=== PATIENT | female | born 1990 | race Caucasian/White ===

== ENCOUNTER 2018-09-03 21:27 | Emergency (ER) | payer MEDICAID ==
[~2018-09-03] VITALS: Ht 162.6 cm; Wt 78.2 kg
[~2018-09-03 21:27] MED LIST: CEPH-572 PO; IBUP-1985 PO; SULF1TAB49 PO
[2018-09-03 21:30] VITALS: BP 132/84
--- NOTE | 2018-09-03 21:48 | NUR ---
PT IS 28 YO FEMALE C/O ABSCESS TO SUPRAPUBIC AREA SINCE SATURDAY, HAS BEEN COMPLIANT WITH TAKING ANTIBIOTICS SINCE SATURDAY, PAIN HAS INCREASED, PT IS WAITING TO BE EVALUATED
== END 2018-09-03 23:39 | disposition home or self-care (01) ==
LOC: ER 21:27
DX: L02.211 Cutaneous abscess of abdominal wall (principal)
CPT/HCPCS: 99284

== ENCOUNTER 2019-10-08 16:28 | Emergency (ER) | payer MEDICAID ==
[~2019-10-08] VITALS: Ht 162.6 cm; Wt 75.0 kg
[~2019-10-08 16:28] MED LIST changes: +BUSP10TA3 PO; -CEPH-572 PO; +CEPH250C PO; -IBUP-1985 PO; +PALI3TAB5 PO; -SULF1TAB49 PO
[2019-10-08 17:12] VITALS: BP 139/92
[2019-10-09] MEDS ORDERED: PALI9TAB PO (20:03)
[2019-10-09] MEDS ORDERED: L-NO1TBD18 PO (20:03)
[2019-10-09] MEDS ORDERED: LORA-269 PO (20:07)
== END 2019-10-08 18:47 | disposition left against medical advice (07) ==
LOC: ER 16:28
DX: R45.1 Restlessness and agitation (principal); Z53.21 Procedure and treatment not carried out due to patient leaving prior to being seen by health care provider

== ENCOUNTER 2019-10-09 17:16 | Emergency (ER) | payer MEDICAID ==
[~2019-10-09] VITALS: Ht 160 cm; Wt 77.3 kg
[2019-10-09] MEDS ORDERED: LORazepam 1 MG tablet PO ONE ×2 (19:05→20:15)
[2019-10-09 19:36] LABS: URINE HCG NEGATIVE (NEG)
--- NOTE | 2019-10-09 19:40 | NUR ---
Patient is awake and well oriented. Her affect is flat. Patient has a sad looking face. The patient tells this selling underwriter that she is having thoughts that "the whole world knows everything about me." The patient denies S/I at this time, she denies hallucinations. The patient tells this selling underwriter that her thoughts have been telling her to lie about everything. The patient does complain of anxiety, she states she can't sleep. Patient admits to not taking her Invegra at home. Patient states a schizophrenia and bipolar history. The patient is reassured that she is in a safe place. Frequent rounding is being done for patient safety. Patients bed is in direct view from the nursing station.
[2019-10-09 19:50] LABS: URINE AMPHETAMINE SCREEN NEGATIVE (Neg); URINE BARBITUATE SCREEN NEGATIVE (Neg); URINE BENZODIAZEPINES SCREEN NEGATIVE (Neg); URINE CANNABINOID SCREEN NEGATIVE (Neg); URINE COCAINE SCREEN NEGATIVE (Neg); URINE METHADONE SCREEN NEGATIVE (Neg); URINE OPIATE SCREEN NEGATIVE (Neg); URINE PHENCYCLIDINE SCREEN NEGATIVE (Neg)
[2019-10-09] MEDS ORDERED: L-NO1TBD18 PO (20:03)
[2019-10-09] MEDS ORDERED: PALI9TAB PO (20:03)
[2019-10-09 20:05] LABS: BASOPHILS # (AUTO) 0.1 X10'3 (0-0.2); BASOPHILS % (AUTO) 0.5 % (0-1); EOSINOPHILS # (AUTO) 0.1 X10'3 (0-0.9); EOSINOPHILS % (AUTO) 0.6 % (0-6); HEMATOCRIT 40.5 % (35.0-45.0); HEMOGLOBIN 13.3 g/dl (12.0-16.0); LYMPHOCYTES # (AUTO) 3.8 X10'3 (1.1-4.8); LYMPHOCYTES % (AUTO) 31.2 % (21-51); MEAN PLATELET VOLUME 8.1 FL (7.4-10.4); MONOCYTES # (AUTO) 0.7 X10'3 (0-0.9); MONOCYTES % (AUTO) 5.9 % (2-12); NEUTROPHILS # (AUTO) 7.6 X10'3 (1.8-7.7); NEUTROPHILS % (AUTO) 61.8 % (42-75); PLATELET COUNT 248 X10'3 (140-440); RED BLOOD COUNT 4.76 X10'6 (4.20-5.60); RED CELL DISTRIBUTION WIDTH 13.7 % (11.5-14.5); WHITE BLOOD COUNT 12.3 X10'3 (4.5-11.0)
[2019-10-09] MEDS ORDERED: LORA-269 PO (20:07)
[2019-10-09 20:20] LABS: ALANINE AMINOTRANSFERASE 45 U/L (12-78); ALBUMIN 3.5 G/DL (3.4-5.0); ALBUMIN/GLOBULIN RATIO 1.1 (1.1-1.5); ALKALINE PHOSPHATASE 61 IU/L (46-116); ANION GAP 9 (8-16); ASPARTATE AMINO TRANSFERASE 18 U/L (10-37); BILIRUBIN,TOTAL 0.1 MG/DL (0.1-1.0); BLOOD UREA NITROGEN 4 MG/DL (7-18); BUN/CREATININE RATIO 4.8 (6.6-38.0); CALCIUM 8.7 MG/DL (8.5-10.1); CHLORIDE 111 MMOL/L (99-107); CREATININE 0.83 MG/DL (0.40-0.90); GLUCOSE 110 MG/DL (70-104); POTASSIUM 3.3 MMOL/L (3.5-5.1); SODIUM 144 MMOL/L (135-145); TOTAL CARBON DIOXIDE 23.8 MMOL/L (24-32); TOTAL PROTEIN 6.6 G/DL (6.4-8.2); eGFR 82 ML/MIN
[2019-10-09 20:23] LABS: ETHANOL < 0.010 GM/DL (0.0-0.010)
--- NOTE | 2019-10-09 20:50 | NUR ---
Patient exhibits paranoia, "I think taking medications will not help me recover!" Patient then takes her ativan for anxiety.
--- NOTE | 2019-10-09 21:00 | NUR ---
Patients mother called. The mother advised that the patient has been living with her fiance and his two children. Over the past few days mother states the patient has been hearing dark intrusive voices that have been telling her daughter to hurt others. The patient consented for this newspaper writer to speak with her mother. After a brief conversation with her mother on the phone the patient went back to bed to sleep.
--- NOTE | 2019-10-09 21:42 | NUR ---
Patient is sleeping quietly, low fowlers position in bed.
--- NOTE | 2019-10-09 21:55 | NUR ---
Patient has been interviewed by Freddie VALLE, from [facility]. Patient returns in bed following interview, she is covered with a sheet, knees flexed.
--- NOTE | 2019-10-09 23:19 | NUR ---
Patient is sleeping on her right side in bed.
--- NOTE | 2019-10-10 00:19 | NUR ---
Patient sleeping quietly on her right side.
--- NOTE | 2019-10-10 01:41 | NUR ---
Patient is sleeping on her right side. In view from nursing station.
--- NOTE | 2019-10-10 04:31 | NUR ---
Patient is sleeping on her left side. In view from nursing station.
[2019-10-10 05:20] VITALS: BP 111/72
[2019-10-10 07:05] LABS: CLARITY,URINE CLOUDY (Clear); COLOR,URINE YELLOW (Yellow); GLUCOSE, URINE NEGATIVE (Neg); KETONES,URINE TRACE mg/dl (Neg); LEUKOCYTE ESTERASE ,URINE NEGATIVE (Neg); NITRITES, URINE NEGATIVE (Neg); OCCULT BLOOD,URINE NEGATIVE (Neg); PROTEIN,URINE NEGATIVE (Neg)
[2019-10-10 07:17] LABS: UA COLLECTION TYPE VOIDED
[2019-10-10 07:20] LABS: MUCUS STRANDS FEW /LPF (Neg); SQUAMOUS EPITHELIAL CELL,UR MANY /LPF (FEW)
[2019-10-10 07:21] LABS: AMORPHOUS URATES 2+
[2019-10-10 07:23] LABS: CAL OXALATE CRYSTALS 1+ /HPF (NEGATIVE)
[2019-10-10 07:26] LABS: BACTERIA,URINE FEW /HPF (Neg); RBC,URINE 0-2 /HPF (0-2); WBC,URINE 0-4 /HPF (0-4)
[2019-10-10] MEDS ORDERED: busPIRone 5mg tablet PO SCH (08:00)
[2019-10-10] MEDS ORDERED: PALIPERIDONE 3 MG TAB.ER.24 PO SCH (08:00)
--- NOTE | 2019-10-10 08:38 | NUR ---
patient awake was walking around earlier saying that she was having anxity and wanted to go for a walk outside she was able to be redirected. took morning meds and ate breakfast now lying in bed [facility] called and said that she has been accepted to [facility]
[2019-10-15] MEDS ORDERED: BUSP10TA3 PO (12:32)
[2019-10-15] MEDS ORDERED: QUET100T33 PO (12:32)
[2019-10-15] MEDS ORDERED: PROP10TA10 PO (12:32)
[2019-10-15] MEDS ORDERED: PALI6TAB6 PO (12:32)
== END 2019-10-10 10:00 ==
LOC: ER 17:17
DX: R45.851 Suicidal ideations (principal); F31.9 Bipolar disorder, unspecified; Z79.899 Other long term (current) drug therapy
CPT/HCPCS: 36415; 80053; 80305; 80320; 81001; 81025; 85025; 99285

== ENCOUNTER 2021-07-23 00:17 | Emergency (ER) | payer MEDICAID ==
[~2021-07-23] VITALS: Ht 162.6 cm; Wt 88.2 kg
[~2021-07-23 00:17] MED LIST changes: -CEPH250C PO; +L-NO1TBD18 PO; -PALI3TAB5 PO; +PROP10TA10 PO; +QUET100T34 PO
[2021-07-23 00:29] VITALS: BP 128/84
== END 2021-07-23 01:33 | disposition home or self-care (01) ==
LOC: ER 00:18
DX: L23.7 Allergic contact dermatitis due to plants, except food (principal); F17.210 Nicotine dependence, cigarettes, uncomplicated; F31.9 Bipolar disorder, unspecified; Z79.899 Other long term (current) drug therapy
CPT/HCPCS: 99281

== ENCOUNTER 2023-07-27 23:50 | Emergency (ER) | payer MEDICAID ==
[~2023-07-27] VITALS: Ht 162.6 cm; Wt 97.4 kg
[2023-07-27 23:52] VITALS: BP 136/82; PULSE 95; RESP 18; TEMP 97.6; O2SAT 98
[2023-07-28] MEDS ORDERED: AMOX-117 PO (23:52)
[2023-07-28] MEDS ORDERED: CIPR10DR LEFT EAR (23:52)
== END 2023-07-28 04:28 | disposition left against medical advice (07) ==
LOC: ER 23:51
DX: H92.02 Otalgia, left ear (principal); Z53.21 Procedure and treatment not carried out due to patient leaving prior to being seen by health care provider
CPT/HCPCS: 99281

== ENCOUNTER 2023-07-28 23:34 | Emergency (ER) | payer MEDICAID ==
[~2023-07-28] VITALS: Ht 162.6 cm; Wt 98.0 kg
[2023-07-28] MEDS ORDERED: AMOX-117 PO (23:52)
[2023-07-28] MEDS ORDERED: CIPR10DR LEFT EAR (23:52)
[2023-07-29 00:35] VITALS: BP 130/84; PULSE 106; RESP 18; TEMP 98.2; O2SAT 98
== END 2023-07-29 00:36 | disposition home or self-care (01) ==
LOC: ER 23:35
DX: H60.92 Unspecified otitis externa, left ear (principal); F31.9 Bipolar disorder, unspecified; Z79.2 Long term (current) use of antibiotics; Z79.899 Other long term (current) drug therapy
CPT/HCPCS: 99283